=== PATIENT | male | born 1950 | race Caucasian/White ===

== ENCOUNTER 2021-02-21 07:54 | Outpatient (REF) | payer OTHER, SELFPAY ==
[2021-02-21 11:34] LABS: Appearance Urine CLEAR; Color Urine YELLOW; Glucose Urine UA NEG (NEG); Leukocyte Esterase Urine NEG (NEG); Nitrite Urine NEG (NEG); Specific Gravity - Urine 1.015 (1.005-1.025); Urine Blood NEG (NEG); Urine Ketones NEG (NEG); Urine Protein NEG (NEG-TRACE)
[2021-02-21 11:39] LABS: MANUAL DIFF FLAG NO
[2021-02-21 11:49] LABS: Basophils Absolute Auto 0.1 X10*3/uL (0.0-0.2); Basophils Percent Auto 0.7 % (0-2); Eosinophils Absolute Auto 0.3 X10*3/uL (0.0-0.4); Eosinophils Percent Auto 4.3 % (0-4); Hematocrit 44.1 % (42-52); Hemoglobin 14.9 g/dl (14.0-18.0); Imm Gran Abs Auto 0.02 X10*3/uL (0.00-0.03); Imm Gran Pct Auto 0.3 % (0.0-0.4); Lymphocytes Absolute Auto 1.7 X10*3/uL (1.2-4.9); Lymphocytes Percent Auto 24.8 % (20-40); Mean Corpuscular HGB Conc 33.8 g/dl (31.0-36.0); Mean Corpuscular Hemoglobin 29.8 pg (27.0-33.0); Mean Corpuscular Volume 88.2 fL (80-98); Monocytes Absolute Auto 0.5 X10*3/uL (0.1-1.2); Monocytes Percent Auto 7.4 % (2-11); Neutrophils Absolute Auto 4.4 X10*3/uL (2.0-8.3); Neutrophils Percent Auto 62.5 % (45-73); Platelet Count 181 X10*3/uL (160-400); Red Cell Distribution Width 12.4 % (11.0-16.0)
[2021-02-21 12:16] LABS: Alanine Aminotransferase 22 U/L (0-40); Albumin Level 4.5 g/dL (3.5-5.0); Alkaline Phosphatase 38 U/L (39-117); Anion Gap 13 (12-20); Aspartate Amino Transferase 18 U/L (5-37); Bilirubin Total 0.7 mg/dL (0.0-1.0); Blood Urea Nitrogen 18 mg/dL (9-16); Calcium 9.6 mg/dL (8.4-10.2); Carbon Dioxide 24 mmol/L (22-29); Chloride 103 mmol/L (96-108); Cholesterol 159 mg/dL; Estimated Glomerular Filt Rate > 60; Glucose Fasting 97 mg/dL (60-99); HDL Cholesterol 39 mg/dL; LDL Cholesterol Calculated 84 mg/dl; Potassium 4.7 mmol/L (3.3-5.1); Sodium 135 mmol/L (135-145); Total Protein 7.4 g/dL (6.5-8.0); Triglycerides 180 mg/dL
[2021-02-21 12:28] LABS: RBC Urine 0 /HPF (0); Squamous Epithelial Cell Urine TRACE /LPF; Urine Talc Crystals TRACE /LPF; WBC Urine 0 /HPF (0-4)
[2021-02-21 12:38] LABS: Thyroid Stimulating Hormone 1.16 uIU/mL (0.32-4.0); Vitamin D 25-OH Total 26.1 ng/mL (>30)
== END 2021-02-21 07:55 | disposition home or self-care (01) ==
LOC: HO.HMGCLDS 07:54
PROVIDERS: PCP Internal Medicine; Visit Provider Internal Medicine
DX: Z00.00 Encounter for general adult medical examination without abnormal findings (principal); I10 Essential (primary) hypertension; E78.00 Pure hypercholesterolemia, unspecified; M15.0 Primary generalized (osteo)arthritis; E66.09 Other obesity due to excess calories; Z68.35 Body mass index [BMI] 35.0-35.9, adult; Z12.5 Encounter for screening for malignant neoplasm of prostate
CPT/HCPCS: 36415; 80053; 80061; 81001; 82306; 84153; 84443; 85025

== ENCOUNTER 2022-03-13 07:16 | Outpatient (REF) | payer OTHER, SELFPAY ==
[2022-03-13 12:02] LABS: Appearance Urine Clear; Basophils Percent Auto 0.7 % (0-2); Color Urine Yellow; Eosinophils Absolute Auto 0.3 X10*3/uL (0.0-0.4); Eosinophils Percent Auto 6.1 % (0-4); Glucose Urine UA Negative (Negative); Hematocrit 44.2 % (42.0-52.0); Hemoglobin 14.7 g/dl (14.0-18.0); Imm Gran Abs Auto 0.01 X10*3/uL (0.00-0.03); Imm Gran Pct Auto 0.2 % (0.0-0.4); Leukocyte Esterase Urine Negative (Negative); Lymphocytes Absolute Auto 1.4 X10*3/uL (1.2-4.9); Lymphocytes Percent Auto 26.2 % (20-40); MANUAL DIFF FLAG NO; Mean Corpuscular HGB Conc 33.3 g/dl (31.0-36.0); Mean Corpuscular Hemoglobin 29.1 pg (27.0-33.0); Mean Corpuscular Volume 87.4 fL (80.0-98.0); Mean Platelet Volume 10.9 fL (9.4-12.4); Monocytes Absolute Auto 0.5 X10*3/uL (0.1-1.2); Monocytes Percent Auto 8.5 % (2-11); Neutrophils Absolute Auto 3.1 x10*3/uL (2.0-8.3); Neutrophils Percent Auto 58.3 % (45-73); Nitrite Urine Negative (Negative); Platelet Count 179 X10*3/uL (160-400); Red Blood Count 5.06 X10*6/uL (4.60-5.80); Urine Blood Negative (Negative); Urine Ketones Negative (Negative); Urine Protein Negative (Neg-Trace); White Blood Count 5.4 X10*3/uL (4.8-10.8)
[2022-03-13 12:06] LABS: Bacteria Urine None Seen (None Seen); Hyaline Casts Urine 0-2 /LPF (0-2); RBC Urine 0-2 /HPF (0-2); Squamous Epithelial Cell Urine 0-2 /HPF (0-2); WBC Urine 0-5 /HPF (0-5)
[2022-03-13 12:31] LABS: Alanine Aminotransferase 18 U/L (0-40); Albumin Level 4.4 g/dL (3.5-5.0); Alkaline Phosphatase 41 U/L (39-117); Anion Gap 16 (12-20); Aspartate Amino Transferase 17 U/L (5-37); Bilirubin Total 0.3 mg/dL (0.0-1.0); Blood Urea Nitrogen 26 mg/dL (9-16); Calcium 9.6 mg/dL (8.4-10.2); Carbon Dioxide 23 mmol/L (22-29); Chloride 102 mmol/L (96-108); Cholesterol 162 mg/dL; Estimated Glomerular Filt Rate > 60; Glucose Fasting 110 mg/dL (60-99); HDL Cholesterol 41 mg/dL; LDL Cholesterol Calculated 89 mg/dl; Potassium 4.9 mmol/L (3.3-5.1); Sodium 136 mmol/L (135-145); Total Protein 7.3 g/dL (6.5-8.0); Triglycerides 161 mg/dL
[2022-03-13 12:40] LABS: PSA,Total (Free>4and<10) 1.99 ng/mL (0.00-4.00); Thyroid Stimulating Hormone 1.23 uIU/mL (0.32-4.0); Vitamin D 25-OH Total 22.1 ng/mL (>30)
== END 2022-03-13 07:17 | disposition home or self-care (01) ==
LOC: HO.HMGCLDS 07:16
PROVIDERS: PCP Internal Medicine; Visit Provider Internal Medicine
DX: Z00.00 Encounter for general adult medical examination without abnormal findings (principal); Z12.5 Encounter for screening for malignant neoplasm of prostate; I10 Essential (primary) hypertension; E78.00 Pure hypercholesterolemia, unspecified; E66.09 Other obesity due to excess calories; N40.1 Benign prostatic hyperplasia with lower urinary tract symptoms; R39.14 Feeling of incomplete bladder emptying
CPT/HCPCS: 36415; 80053; 80061; 81001; 82306; 84153; 84443; 85025

== ENCOUNTER 2023-02-12 06:10 | Outpatient (REF) | payer OTHER, SELFPAY ==
[2023-02-12 11:21] LABS: MANUAL DIFF FLAG NO
[2023-02-12 11:41] LABS: Basophils Absolute Auto 0.1 X10*3/uL (0.0-0.2); Basophils Percent Auto 0.9 % (0-2); Eosinophils Absolute Auto 0.3 X10*3/uL (0.0-0.4); Eosinophils Percent Auto 5.8 % (0-4); Hematocrit 45.1 % (42.0-52.0); Hemoglobin 14.8 g/dl (14.0-18.0); Imm Gran Abs Auto 0.01 X10*3/uL (0.00-0.03); Imm Gran Pct Auto 0.2 % (0.0-0.4); Lymphocytes Absolute Auto 1.5 X10*3/uL (1.2-4.9); Lymphocytes Percent Auto 27.1 % (20-40); Mean Corpuscular HGB Conc 32.8 g/dl (31.0-36.0); Mean Corpuscular Hemoglobin 29.7 pg (27.0-33.0); Mean Corpuscular Volume 90.4 fL (80.0-98.0); Monocytes Absolute Auto 0.4 X10*3/uL (0.1-1.2); Monocytes Percent Auto 6.7 % (2-11); Neutrophils Absolute Auto 3.2 x10*3/uL (2.0-8.3); Neutrophils Percent Auto 59.3 % (45-73); Platelet Count 153 X10*3/uL (160-400); Red Blood Count 4.99 X10*6/uL (4.60-5.80); Red Cell Distribution Width 12.7 % (11.0-16.0); White Blood Count 5.4 X10*3/uL (4.8-10.8)
[2023-02-12 12:09] LABS: Alanine Aminotransferase 22 U/L (0-40); Albumin Level 4.3 g/dL (3.5-5.0); Alkaline Phosphatase 39 U/L (39-117); Anion Gap 13 (12-20); Aspartate Amino Transferase 19 U/L (5-37); Bilirubin Total 0.8 mg/dL (0.0-1.0); Blood Urea Nitrogen 22 mg/dL (9-16); Calcium 9.8 mg/dL (8.4-10.2); Carbon Dioxide 25 mmol/L (22-29); Chloride 105 mmol/L (96-108); Cholesterol 149 mg/dL (<200); Estimated Glomerular Filt Rate > 60; Glucose Fasting 113 mg/dL (60-99); HDL Cholesterol 40 mg/dL (>40); LDL Cholesterol Calculated 80 mg/dL (<100); Potassium 5.2 mmol/L (3.3-5.1); Sodium 138 mmol/L (135-145); Total Protein 7.3 g/dL (6.5-8.0); Triglycerides 145 mg/dL (<150)
[2023-02-12 12:13] LABS: PSA,Total (Free>4and<10) 2.51 ng/mL (0.00-4.00)
[2023-02-12 12:16] LABS: Thyroid Stimulating Hormone 1.11 uIU/mL (0.32-4.0)
== END 2023-02-12 06:11 | disposition home or self-care (01) ==
LOC: HO.CHCLDS 06:10
PROVIDERS: Visit Provider Internal Medicine
DX: Z00.00 Encounter for general adult medical examination without abnormal findings (principal); Z12.5 Encounter for screening for malignant neoplasm of prostate; I10 Essential (primary) hypertension; E78.00 Pure hypercholesterolemia, unspecified; N40.1 Benign prostatic hyperplasia with lower urinary tract symptoms; E55.9 Vitamin D deficiency, unspecified
CPT/HCPCS: 36415; 80053; 80061; 82306; 84153; 84443; 85025

== ENCOUNTER 2023-08-12 06:04 | Outpatient (REF) | payer OTHER, SELFPAY ==
[2023-08-12 12:46] LABS: MANUAL DIFF FLAG NO
[2023-08-12 12:51] LABS: Basophils Absolute Auto 0.1 X10*3/uL (0.0-0.2); Basophils Percent Auto 1.4 % (0-2); Eosinophils Absolute Auto 0.4 X10*3/uL (0.0-0.4); Eosinophils Percent Auto 6.5 % (0-4); Hemoglobin 15.4 g/dl (14.0-18.0); Imm Gran Abs Auto 0.02 X10*3/uL (0.00-0.03); Imm Gran Pct Auto 0.4 % (0.0-0.4); Lymphocytes Absolute Auto 1.6 X10*3/uL (1.2-4.9); Lymphocytes Percent Auto 29.1 % (20-40); Mean Corpuscular HGB Conc 33.5 g/dl (31.0-36.0); Mean Corpuscular Hemoglobin 29.3 pg (27.0-33.0); Mean Corpuscular Volume 87.6 fL (80.0-98.0); Mean Platelet Volume 10.5 fL (9.4-12.4); Monocytes Absolute Auto 0.4 X10*3/uL (0.1-1.2); Monocytes Percent Auto 7.2 % (2-11); Neutrophils Absolute Auto 3.1 x10*3/uL (2.0-8.3); Neutrophils Percent Auto 55.4 % (45-73); Platelet Count 155 X10*3/uL (160-400); Red Blood Count 5.25 X10*6/uL (4.60-5.80); Red Cell Distribution Width 12.6 % (11.0-16.0); White Blood Count 5.6 X10*3/uL (4.8-10.8)
[2023-08-12 13:22] LABS: Alanine Aminotransferase 22 U/L (0-40); Albumin Level 4.2 g/dL (3.5-5.0); Alkaline Phosphatase 37 U/L (39-117); Anion Gap 11 (12-20); Aspartate Amino Transferase 19 U/L (5-37); Bilirubin Total 0.5 mg/dL (0.0-1.0); Blood Urea Nitrogen 28 mg/dL (9-16); Calcium 9.6 mg/dL (8.4-10.2); Carbon Dioxide 24 mmol/L (22-29); Chloride 106 mmol/L (96-108); Estimated Glomerular Filt Rate > 60; Glucose Fasting 107 mg/dL (60-99); Potassium 4.8 mmol/L (3.3-5.1); Sodium 136 mmol/L (135-145); Total Protein 7.3 g/dL (6.5-8.0)
== END 2023-08-12 06:05 | disposition home or self-care (01) ==
LOC: HO.HMGCLDS 06:04
PROVIDERS: PCP Internal Medicine; Visit Provider Internal Medicine
DX: Z00.00 Encounter for general adult medical examination without abnormal findings (principal); I10 Essential (primary) hypertension; E78.00 Pure hypercholesterolemia, unspecified; N40.1 Benign prostatic hyperplasia with lower urinary tract symptoms; E55.9 Vitamin D deficiency, unspecified
CPT/HCPCS: 36415; 80053; 85025

== ENCOUNTER 2023-09-30 06:22 | Day surgery (SDC) | payer OTHER, SELFPAY ==
[2023-09-26 13:53] VITALS: BMI 31.7
--- NOTE | 2023-09-26 14:50 | HO.ANESPROP2 ---
Documented by User: Ericka Alfonso NP 09/26/23 14:50 HPI - Anesthesia Eval Consult details Narrative: 73yo M for Colonoscopy [facility] Past Medical History Medical History BPH (benign prostatic hyperplasia) Depression Osteoarthritis Hyperlipidemia HTN (hypertension) Tubular adenoma Colon polyps Surgical History Surgical History Hx of arthroscopy History of bilateral knee replacement H/O colonoscopy Social History Social History Patient Tobacco Use Status: Former Tobacco user Substance Use Frequency: Daily Are you DNR?: No Advance Directives: No Advance Directives Information Provided: Yes Nutrition Risks: No Nutritional Risk Meds Allergies Allergy/AdvReac Type Severity Reaction Status Date / Time Penicillins [PENICILLINS] Allergy Severe DIFFICULTY Verified 09/30/23 06:45 BREATHING Tetracyclines [TETRACYCLINES] Allergy Intermediate RASH, Verified 09/30/23 06:45 HIVES, DIFFICULTY BREATHING penicillin V Allergy Unknown Unknown Verified 09/30/23 06:45 tetracycline Allergy Unknown Unknown Verified 09/30/23 06:45 Sulfa (Sulfonamide Allergy Unknown Verified 09/30/23 06:45 Antibiotics) Home Medications ?Medication ?Instructions ?Recorded ?Confirmed ?Last Taken ?Type ibuprofen-diphenhydramine citrate 1 cap PO BEDTIME 09/26/23 09/26/23 Unknown History 200 mg-38 mg tablet (Advil PM) lisinopril 40 mg tablet 40 mg PO DAILY 09/26/23 09/26/23 09/30/23 History simvastatin 20 mg tablet 20 mg PO BEDTIME 09/26/23 09/26/23 Unknown History tamsulosin 0.4 mg capsule 0.4 mg PO DAILY 09/26/23 09/26/23 Unknown History Exam Height,Weight and Vital Signs: Height 5 ft 9.5 in Weight 98.883 kg Pertinent Lab Results Pertinent Lab Results: Laboratory Tests 08/12/23 06:16 WBC 5.6 Hgb 15.4 Hct 46.0 Plt Count 155 L Sodium 136 Potassium 4.8 Chloride 106 Carbon Dioxide 24 BUN 28 H Creatinine 1.04 Assessment and Plan Assessment Anesthesia Assessment: Chart Reviewed Documented by User: Jo-Ann Vasquez MD 09/30/23 07:46 [facility] Past Medical History Medical History BPH (benign prostatic hyperplasia) Depression Osteoarthritis Hyperlipidemia HTN (hypertension) Tubular adenoma Colon polyps Surgical History Surgical History Hx of arthroscopy History of bilateral knee replacement H/O colonoscopy History of Problems with Anesthesia: No Social History Social History Patient Tobacco Use Status: Former Tobacco user Substance Use Frequency: Daily Are you DNR?: No Advance Directives: No Advance Directives Information Provided: Yes Nutrition Risks: No Nutritional Risk Meds Allergies Allergy/AdvReac Type Severity Reaction Status Date / Time Penicillins [PENICILLINS] Allergy Severe DIFFICULTY Verified 09/30/23 06:45 BREATHING Tetracyclines [TETRACYCLINES] Allergy Intermediate RASH, Verified 09/30/23 06:45 HIVES, DIFFICULTY BREATHING penicillin V Allergy Unknown Unknown Verified 09/30/23 06:45 tetracycline Allergy Unknown Unknown Verified 09/30/23 06:45 Sulfa (Sulfonamide Allergy Unknown Verified 09/30/23 06:45 Antibiotics) Home Medications ?Medication ?Instructions ?Recorded ?Confirmed ?Last Taken ?Type ibuprofen-diphenhydramine citrate 1 cap PO BEDTIME 09/26/23 09/26/23 Unknown History 200 mg-38 mg tablet (Advil PM) lisinopril 40 mg tablet 40 mg PO DAILY 09/26/23 09/26/23 09/30/23 History simvastatin 20 mg tablet 20 mg PO BEDTIME 09/26/23 09/26/23 Unknown History tamsulosin 0.4 mg capsule 0.4 mg PO DAILY 09/26/23 09/26/23 Unknown History Exam Airway Mallampati Class: III TM Dist: >3cm Neck ROM: Full Loose/Missing/Broken Teeth: No Heart: RRR Lungs: CTA Assessment and Plan Assessment Anesthesia Assessment: Anesthesia Plan Discussed Final Anesthetic Review History of Problems with Anesthesia: No NPO: Yes ASA Class: II Final Preanesthetic Review: Meds/Allgs Chart Reviewed, Consent Obtained/Reviewed and Anes Risks/Benef Reviewed Patient Risk: Low Procedure Risk: Low Anesthetic Plan Anesthetic Plan: MAC: Disposition: Standard PACU
--- OUTSIDE RECORDS SUMMARY | 2023-09-30 06:25 | XMS_ITS | Patient Health Record ---
Author Organization José Luis Rizvi DO, FACP Address [address], [place] [id number] Care Team Providers Care Crop Research Scientist Name Role Phone José Luis Rizvi Primary Care Provider [phone] ALLERGIES Allergen (clinical drug ingredient) Drug/Non Drug Allergy documented on EMR Reaction Allergy Type Onset Date Status Penicillin respiratory and skin problems Drug Allergy Active tetracycline Tetracycline HCl respiratory and skin problems Drug Allergy Active RESULTS Component Value Reference Range Notes Complete Blood Count Auto Di ff Reviewed date:02/12/2023 12:13:21 PM Interpretation:Abnormal Performing Lab:[facility], [address] [place] [phone] Notes/Report: White Blood Count 5.4 4.8-10.8 X10*3/uL Red Blood Count 4.99 4.60-5.80 X10*6/uL Hemoglobin 14.8 14.0-18.0 g/dl Hematocrit 45.1 42.0-52.0 % Mean Corpuscular Volume 90.4 80.0-98.0 fL Mean Corpuscular Hemoglobin 29.7 27.0-33.0 pg Mean Corpuscular HGB Conc 32.8 31.0-36.0 g/dl Red Cell Distribution Width 12.7 11.0-16.0 % Platelet Count 153 160-400 X10*3/uL Mean Platelet Volume 11.0 9.4-12.4 fL Neutrophils Percent Auto 59.3 45-73 % Imm Gran Pct Auto 0.2 0.0-0.4 % Lymphocytes Percent Auto 27.1 20-40 % Monocytes Percent Auto 6.7 2-11 % Eosinophils Percent Auto 5.8 0-4 % Basophils Percent Auto 0.9 0-2 % NRBC Pct Auto 0.0 0.0-0.2 /100WBC Neutrophils Absolute Auto 3.2 2.0-8.3 x10*3/u L Imm Gran Abs Auto 0.01 0.00-0.03 X10*3/uL Lymphocytes Absolute Auto 1.5 1.2-4.9 X10*3/u L Monocytes Absolute Auto 0.4 0.1-1.2 X10*3/uL Eosinophils Absolute Auto 0.3 0.0-0.4 X10*3/u L Basophils Absolute Auto 0.1 0.0-0.2 X10*3/uL NRBC Abs Auto 0.000 0.0-0.012 X10*3/uL Comprehensive [place]. Panel Fa st Reviewed date:02/12/2023 12:24:59 PM Interpretation:Abnormal Performing Lab:[address] [phone] Notes/Report: Sodium 138 135-145 mmol/L Potassium 5.2 3.3-5.1 mmol/L Chloride 105 96-108 mmol/L Carbon Dioxide 25 22-29 mmol/L Anion Gap 13 12-20 Blood Urea Nitrogen 22 9-16 mg/dL Creatinine 1.07 0.5-1.4 mg/dL Estimated Glomerular Filt Rate > 60 NOTE: For -[place] individuals, multiply the result by 1.210. Chronic Kidney Disease: Estimated GFR < 60 mL/min/1.73m2 Severe Kidney Disease: Estimated GFR < 15 mL/min/1.73m2 Glucose Fasting 113 60-99 mg/dL A fasting glucose from 100-125 mg/dl is considered impaired (pre-diabetes). Calcium 9.8 8.4-10.2 mg/dL Bilirubin Total 0.8 0.0-1.0 mg/dL Aspartate Amino Transferase 19 5-37 U/L Alanine Aminotransferase 22 0-40 U/L Total Protein 7.3 6.5-8.0 g/dL Albumin Level 4.3 3.5-5.0 g/dL Alkaline Phosphatase 39 39-117 U/L Lipid Panel Reviewed date:02/12/2023 12:24:59 PM Interpretation:Normal Performing Lab:[facility], [address] [place] [phone] Notes/Report: Triglycerides 145 <150 mg/dL Desirable Triglyceride: less than 150 mg/dL Borderline High Triglyceride 150-199 mg/dL High Triglyceride: 200-499 mg/dL Very High Triglyceride: greater than or equal to 5OO mg/dL Cholesterol 149 <200 mg/dL Desirable Cholesterol: less than 200 mg/dL Borderline High Cholesterol: 200-239 mg/dL High Cholesterol: greater than 239 mg/dL LDL Cholesterol Calculated 80 <100 mg/dL Desirable LDL: less than 100 mg/dL Near Optimal/Above Optimal LDL: 110-129 mg/dL Borderline High LDL: 130-159 mg/dL High LDL: 160-189 mg/dL Very High LDL: greater than or equal to 190 mg/dL HDL Cholesterol 40 >40 mg/dL Desirable HDL: greater than 40 mg/dL Note: This HDL assay may give artificially low results in patients with liver disease. PSA,Total (Free>4and<10) Reviewed date:02/12/2023 12:24:59 PM Interpretation:Normal Performing Lab:[address] [phone] Notes/Report: PSA,Total (Free>4and<10) 2.51 0.00-4.00 ng/mL A Free PSA was not performed: The percentage of Free PSA can be used to enhance the differentiation of prostate cancer from benign prostatic disease in subjects whose PSA levels are between 4.0 and 10.0 ng/mL. For subjects whose PSA levels are below 4.0 or above 10.0 ng/mL, the risk of prostate cancer is determined on the basis of the PSA alone. Therefore the % Free PSA is recommended only for those subjects whose PSA levels are between 4.0 and 10.0 ng/mL. PSA methodology: [employer] i Chemiluminescent Microparticle Immunoassay (CMIA) Vitamin D 25-OH Total Reviewed date:02/12/2023 12:24:59 PM Interpretation:Normal Performing Lab:[address] [phone] Notes/Report: Vitamin D 25-OH Total 58.0 >30 ng/mL Health Based Reference Values* < 20 ng/mL Deficient 20-30 ng/mL Insufficient > 30 ng/mL Sufficient *Selene SU. N Engl J Med. 2007;357:266-280 Care must be taken in interpreting Vitamin D results from different laboratories and methodologies. Published data demonstrated that results from patients undergoing hemodialysis may show a negative bias when tested with various automated 25-OH vitamin D assays when compared to LC-MS/MS. When testing samples from patients whose predominant form of Vitamin D is Vitamin D2, such as patients receiving Vitamin D2 supplementation, results that are subtherapeutic should be confirmed with another method such as LC-MS/MS. Thyroid Stimulating Hormone Reviewed date:02/12/2023 12:26:23 PM Interpretation:Normal Performing Lab:[facility], [address] [place] [phone] Notes/Report: Thyroid Stimulating Hormone 1.11 0.32-4.0 uIU/ mL TSH 3rd Generation ([employer]) Complete Blood Count Auto Di ff Reviewed date:08/12/2023 01:03:46 PM Interpretation:Abnormal Performing Lab:[facility], [address] [place] [phone] Notes/Report: White Blood Count 5.6 4.8-10.8 X10*3/uL Red Blood Count 5.25 4.60-5.80 X10*6/uL Hemoglobin 15.4 14.0-18.0 g/dl Hematocrit 46.0 42.0-52.0 % Mean Corpuscular Volume 87.6 80.0-98.0 fL Mean Corpuscular Hemoglobin 29.3 27.0-33.0 pg Mean Corpuscular HGB Conc 33.5 31.0-36.0 g/dl Red Cell Distribution Width 12.6 11.0-16.0 % Platelet Count 155 160-400 X10*3/uL Mean Platelet Volume 10.5 9.4-12.4 fL Neutrophils Percent Auto 55.4 45-73 % Imm Gran Pct Auto 0.4 0.0-0.4 % Lymphocytes Percent Auto 29.1 20-40 % Monocytes Percent Auto 7.2 2-11 % Eosinophils Percent Auto 6.5 0-4 % Basophils Percent Auto 1.4 0-2 % NRBC Pct Auto 0.0 0.0-0.2 /100WBC Neutrophils Absolute Auto 3.1 2.0-8.3 x10*3/u L Imm Gran Abs Auto 0.02 0.00-0.03 X10*3/uL Lymphocytes Absolute Auto 1.6 1.2-4.9 X10*3/u L Monocytes Absolute Auto 0.4 0.1-1.2 X10*3/uL Eosinophils Absolute Auto 0.4 0.0-0.4 X10*3/u L Basophils Absolute Auto 0.1 0.0-0.2 X10*3/uL NRBC Abs Auto 0.000 0.0-0.012 X10*3/uL Comprehensive [place]. Panel Fa st Reviewed date:08/12/2023 01:44:38 PM Interpretation:Abnormal Performing Lab:[facility], [address] [place] [phone] Notes/Report: Sodium 136 135-145 mmol/L Potassium 4.8 3.3-5.1 mmol/L Chloride 106 96-108 mmol/L Carbon Dioxide 24 22-29 mmol/L Anion Gap 11 12-20 Blood Urea Nitrogen 28 9-16 mg/dL Creatinine 1.04 0.5-1.4 mg/dL Estimated Glomerular Filt Rate > 60 NOTE: For -[place]igerian individuals, multiply the result by 1.210. Chronic Kidney Disease: Estimated GFR < 60 mL/min/1.73m2 Severe Kidney Disease: Estimated GFR < 15 mL/min/1.73m2 Glucose Fasting 107 60-99 mg/dL A fasting glucose from 100-125 mg/dl is considered impaired (pre-diabetes). Calcium 9.6 8.4-10.2 mg/dL Bilirubin Total 0.5 0.0-1.0 mg/dL Aspartate Amino Transferase 19 5-37 U/L Alanine Aminotransferase 22 0-40 U/L Total Protein 7.3 6.5-8.0 g/dL Albumin Level 4.2 3.5-5.0 g/dL Alkaline Phosphatase 37 39-117 U/L REASON FOR REFERRAL Reason F/U colonoscopy Diagnosis 1 Encounter for genera l adult medical examination without abnormal findings (Z00.00) Referral Organization José Luis Mac, FACCristobal Referring Provider First Name José Luis Referring Provider Last Name Dmitri Referring Provider Speciality Internal M edicine Referred Provider Andrzej Malik Referred Provider Specialty Gastroentero logy Referral Priority Routine Referral Appointment Date 07/14/2023 MEDICATIONS Medication SIG (Take, Route, Frequency, Duration) Notes Start Date End Date Status Simvastatin 20 MG 1 tablet in the even ing Orally Once a day for 90 days Active Simvastatin 20 MG 1 tablet in the even ing Orally Once a day 08/20/2023 Active Vitamin D (Cholecalciferol) 25 MCG (1000 UT) 1 capsule Orally Once a day Active Tamsulosin HCl 0.4 MG 1 capsule Orally O nce a day Active Lisinopril 40 MG 1 tablet Orally Once a day Active IMMUNIZATIONS Vaccine Route Administration Date Status Comme nts Influenza IM Intramuscular 01/27/2014 Administered Influenza Quad IM Intramuscular 03/07/2015 Administered Pneumococcal - PPSV23 IM Intramuscular 09/18/2015 Administ ered Influenza High Dose IM Intramuscular 01/19/2021 Administer ed Influnza High Dose Quad Unknown 02/12/2022 Administered Shingrix Unknown 05/08/2020 Administered COVID-19 Moderna Vaccine Unknown 08/03/2020 Administere d COVID-19 Moderna Vaccine Unknown 03/05/2021 Administere d Shingrix Unknown 03/03/2020 Administered Influenza High Dose Unknown 03/18/2019 Administered COVID-19 Moderna Vaccine Unknown 08/24/2021 Administere d COVID-19 Moderna Vaccine Unknown 07/06/2020 Administere d Influenza Quad Unknown 02/18/2020 Administered COVID-19 Moderna Bivalent Unknown 02/12/2022 Administer ed SOCIAL HISTORY Tobacco Use: Social History Observation Description Date Details (start date - stop date) Former Smoker NA - NA Sex Assigned At : Social History Observation Description Sex Assigned At Male Tobacco Use/Smoking Question Answer Notes Patient is a former smoker How long has it been since y ou last smoked? > 10 years Additional Findings: Tobacco Non-User Fo rmer smoker, currently using no form of tobacco Alcohol Screen Question Answer Notes Did you have a drink containing alcohol in the p ast year? No Points 0 Interpretation Negative PROBLEMS Problem Type ICD Code Onset Dates Problem Status W/U Status Risk SNOMED Code Notes Problem Vitamin D deficiency (E55.9) Active confirmed 15808817 Problem Other obesity due to excess calories (E66.09) Active confirmed 342585479 Problem Essential hypertensi on (I10) Active confirmed 52740571 Problem Primary osteoarthrit is involving multiple joints (M15.0) Active confirmed 311874579 Problem Status post total ri ght knee replacement (Z96.651) Active confirmed 0839979283959 Problem Benign prostatic hyperplasia with lower urinary tract symptoms (N40.1) Active confirmed 963937818 Problem Hypercholesterolemia (E78.00) Active confirmed 19175265 Problem Body mass index [BMI ] 35.0-35.9, adult (Z68.35) Active confirmed 448563049 Encounters Encounter Location Date Provider Diagnosis José Luis Rizvi DO, [address] [phone] 02/18/2023 José Luis Rizvi Encounter for leonardo servin adult medical examination without abnormal findings Z00.00 ; Essential hypertension I10 ; Hypercholesterolemia E78.00 ; Benign prostatic hyperplasia with lower urinary tract symptoms N40.1 and Vitamin D deficiency E55.9 José Luis Rizvi DO, [address] [phone] 08/20/2023 José Luis Rizvi Essential hypertensi on I10 ; Hypercholesterolemia E78.00 ; Other obesity due to excess calories E66.09 ; Benign prostatic hyperplasia with lower urinary tract symptoms N40.1 and Vitamin D deficiency E55.9 José Luis Rizvi , [address] [phone] 02/04/2023 José Luis Rizvi Encounter for leonardo servin adult medical examination without abnormal findings Z00.00 ; Essential hypertension I10 ; Hypercholesterolemia E78.00 ; Benign prostatic hyperplasia with lower urinary tract symptoms N40.1 and Vitamin D deficiency E55.9 ASSESSMENTS Encounter Date Diagnosis Assessment Notes Treatment Notes Treatment Clinical Notes 02/18/2023 Encounter for leonardo servin adult medical examination without abnormal findings (ICD-10 - Z00.00) Exercise, diet, carbohydrate restriction, portion control, weight loss. Goal 15 pound weight loss 02/18/2023 Essential hypertensi on (ICD-10 - I10) 08/20/2023 Essential hypertensi on (ICD-10 - I10) 08/20/2023 Hypercholesterolemia (ICD-10 - E78.00) 02/04/2023 Encounter for leonardo l adult medical examination without abnormal findings (ICD-10 - Z00.00) 02/04/2023 Essential hypertensi on (ICD-10 - I10) 02/18/2023 Hypercholesterolemia (ICD-10 - E78.00) 08/20/2023 Other obesity due to excess calories (ICD-10 - E66.09) Diet, exercise, weight loss. Needs to decrease his BMI. Goal weight loss of 15 pounds 02/04/2023 Hypercholesterolemia (ICD-10 - E78.00) 02/18/2023 Benign prostatic hyperplasia with lower urinary tract symptoms (ICD-10 - N40.1) 08/20/2023 Benign prostatic hyperplasia with lower urinary tract symptoms (ICD-10 - N40.1) 02/04/2023 Benign prostatic hyperplasia with lower urinary tract symptoms (ICD-10 - N40.1) 02/18/2023 Vitamin D deficiency (ICD-10 - E55.9) 08/20/2023 Vitamin D deficiency (ICD-10 - E55.9) 02/04/2023 Vitamin D deficiency (ICD-10 - E55.9) PLAN OF TREATMENT Pending Test Test Name Order Date CBC w DIFF 08/20/2023 LIPOPROTEIN FRACTIONATION (LIPID PANEL) 08/20/2023 PROFILE, FASTING 08/20/2023 TSH (THYROID STIMULATING HORMONE) 2023 VITAMIN D 25-OH TOTAL 08/20/2023 Urinalysis and Microscopic 08/20/2023 PSA,Total (Free>4and<10) 08/20/2023 Microalbumin, Random 08/20/2023 Hemoglobin A1c 08/20/2023 Next Appt Details Provider Name:José Luis Kaylie fuller, 02/24/2024 01:00:00 PM, [address] [place] [address], [phone], Insurance Providers Payer Name Payer Address Payer Phone Subscriber Number Group Number Insured Name Patient Relationship to Insured Coverage Start Date Coverage End Date [employer] [address] [place], [place] [id number] Dejon Shelton Self - patient is the insured MEDICAL (GENERAL) HISTORY Medical History History ICD Code hypertension hypercholesterolemia perineal abcess osteoarthritis, knees prostatitis folic acid deficiency allergies depression erectile dysfunction alcoholism, sober since 04/10/1995 Benign prostatic hyperplasia with lower urinary tract symptoms N40.1 Surgical History Surgery Date(Month/Year) tonsillectomy and adenoidectomy right knee replacement 09/2015 left knee replacement 12/2015
--- OUTSIDE RECORDS SUMMARY | 2023-09-30 06:25 | XMS_ITS | Patient Health Record ---
Author Organization [facility] Address [address] [place] [address] Care Team Providers Care Systems Software Designer Name Role Phone José Luis Lynn DO Primary Care Provider Unavail able Andrzej Riley Jr Unavailable ALLERGIES Allergen (clinical drug ingredient) Drug/Non Drug Allergy documented on EMR Reaction Allergy Type Onset Date Status Sulfa Unknown Drug Allergy Active Penicillin Unknown Drug Allergy Active tetracycline Tetracycline HCl Unknown Drug Allergy Active REASON FOR REFERRAL Referring Provider First Name José Luis Referring Provider Last Name Dmitri Referring Provider Speciality Internal M edicine Referred Organization [facility] Referred Provider Andrzej Riley Jr Referred Address [address] [facility],[address],[place], [place],[address], Referred Provider Specialty Gastroentero logy General Notes Iris Levi 024 08:53:02 AM EST > call dr lynn's office at [phone] to see if a [facility] referral is needed for the patient's appt with Dr. Riley on 07-14-2023, Iris Levi 07/01/2023 10:51:04 AM EST > REQUESTED REFERRAL FROM DR LYNN'S OFFICE FOR VISIT WITH DR RILEY ON 07-14-2023, Iris Levi 07/02/2023 09:30:34 AM EST > no referral required per dr lynn's office Referral Priority Routine MEDICATIONS Medication SIG (Take, Route, Frequency, Duration) Notes Start Date End Date Status Tamsulosin HCl 0.4 MG as directed Orally Active Lisinopril Active Simvastatin Active Advil PM Active MiraLax (colon prep) 17 GM/SCOOP mixed with Gatorade or Crystal Light Orally begin at 5:00 p.m. the day before the procedure for 1 day 07/14/2023 Active IMMUNIZATIONS Vaccine Route Administration Date Status Comme nts Influenza Unknown 01/28/2023 Administered SOCIAL HISTORY Tobacco Use: Social History Observation Description Date Details (start date - stop date) Former Smoker NA - NA Sex Assigned At : Social History Observation Description Sex Assigned At Unknown Tobacco Use/Smoking Question Answer Notes Patient is a former smoker How long has it been since you last smoked? 5-10 years PROBLEMS Problem Type ICD Code Onset Dates Problem Status W/U Status Risk SNOMED Code Notes Problem Colon cancer screening (Z12.11) Active confirmed 899153638 Problem Gastroesophageal reflux disease without esophagitis (K21.9) Active confirmed 601390274 Problem Encounter for long-term (current) use of NSAIDs (Z79.1) Active confirmed 388303361 Problem Intestinal gas excretion (R14.3) Active confirmed 670937977 Problem Change in bowel movement (R19.8) Active confirmed 93149523 VITAL SIGNS Temperature 97.5 degrees Fahrenheit 07/14/2023 Blood pressure diastolic 00 mm Hg 07/14/2023 Height 69.50 in 07/14/2023 Blood pressure systolic 000 mm Hg 07/14/2023 Weight 218 lb 2 oz lbs 07/14/2023 BMI 31.75 kg/m2 07/14/2023 Encounters Encounter Location Date Provider Diagnosis [facility] [address] [place] [phone] 09/30/2023 Andrzej Riley Jr [facility] [address] [facility] [address] [place] [phone] 07/14/2023 Andrzej Riley Jr Colon cancer screening Z12.11 ; Change in bowel movement R19.8 ; Intestinal gas excretion R14.3 and Encounter for long-term (current) use of NSAIDs Z79.1 ASSESSMENTS Encounter Date Diagnosis Assessment Notes Treatment Notes Treatment Clinical Notes 07/14/2023 Colon cancer screening (ICD-10 - Z12.11) Colonoscopy material was printed 07/14/2023 Change in bowel movement (ICD-10 - R19.8) 07/14/2023 Intestinal gas excretion (ICD-10 - R14.3) 07/14/2023 Encounter for long-term (current) use of NSAIDs (ICD-10 - Z79.1) PLAN OF TREATMENT Future Test Test Name Order Date COLONOSCOPY 10/30/2011 COLONOSCOPY 06/11/2017 COLONOSCOPY 07/14/2023 Next Appt Details Provider Name:Andrzej sena Jr, 09/30/2023 07:30:00 AM, [address] [place] [address] , [place], [place], [phone], Insurance Providers Payer Name Payer Address Payer Phone Subscriber Number Group Number Insured Name Patient Relationship to Insured Coverage Start Date Coverage End Date [employer] [address] [place] [phone] [id number] ISABELLE VIDES Self - patient is the insured MEDICAL (GENERAL) HISTORY Medical History History ICD Code Colon polyps, colonoscopy 09/26, tubular adenomas x2, five-year followup Hypertension Hyperlipidemia Osteoarthritis BPH/prostatitis Depression Surgical History Surgery Date(Month/Year) arthroscopy left knee replacement 2015 right knee replacement 2015
[2023-09-30 06:45] VITALS: BMI 30.9
[2023-09-30] MEDS: Lactated Ringers 1,000 ML 100 ML IVCONT (06:52)
[2023-09-30 06:57] VITALS: BP 126/88; PULSE 95; RESP 18; TEMP 36.7; O2SAT 96
--- NOTE | 2023-09-30 07:29 | MHC.SHP ---
Pre-Procedural Eval Section A - 24 Hr Update-Section A only Date of Service: 09/30/23 Section B - Complete if H&P > 30 days Chief Complaint: Encounter for screening for malignant neoplasm of Details of Present Illness: see H&P no changes Relevant Family History (Specify if Yes): No Relevant Social History: None Present Medications: see Short Stay Collaborative assessment Medical History: No relevant PMH History of Previous Operations: No relevant previous surgery Allergies: Allergies Allergy/AdvReac Type Severity Reaction Status Date / Time Penicillins [PENICILLINS] Allergy Severe DIFFICULTY Verified 09/30/23 06:45 BREATHING Tetracyclines [TETRACYCLINES] Allergy Intermediate RASH, Verified 09/30/23 06:45 HIVES, DIFFICULTY BREATHING penicillin V Allergy Unknown Unknown Verified 09/30/23 06:45 tetracycline Allergy Unknown Unknown Verified 09/30/23 06:45 Sulfa (Sulfonamide Allergy Unknown Verified 09/30/23 06:45 Antibiotics) Review of Systems Sugical H&P ROS: Negative: Constitution, Cardiovascular, Respiratory, Neurological, Psychiatric, Hem-Onc, Allergic/Immunologic, Gastrointestinal, Genitourinary, Musculoskeletal, Integumentary, Endocrine and Eyes/Ears/Nose/Throat Exam Surgical H&P Exam: Normal: HEENT, Normal: Heart, Normal: Lungs, Normal: Extremities, Normal: Abdomen, Normal: Skin and Normal: Neurological Plan Diagnosis/Plan: Unchanged I have reviewed the history and physical and performed a pertinent physical examination on my patient. No changes have occurred unless specified. Time Spent With Patient Time: Total time managing care of this patient today ____ minutes.
[2023-09-30 08:03] VITALS: BP 84/51; PULSE 85; RESP 18; TEMP 36.1; O2SAT 98
[2023-09-30 08:18] VITALS: BP 115/78; PULSE 74; RESP 16; TEMP 36.1; O2SAT 97
--- NOTE | 2023-09-30 08:43 | OP_ITS ---
DATE OF SERVICE: 09/30/2023 SURGEON: Andrzej Malik MD INDICATIONS: Colon cancer screening and prior history of colon polyps. PREOPERATIVE DIAGNOSIS: POSTOPERATIVE DIAGNOSIS: PROCEDURE PERFORMED: Colonoscopy to the terminal ileum with snare polypectomy. ESTIMATED BLOOD LOSS: COMPLICATIONS: ANESTHESIA: Monitored anesthesia care. ASSISTANTS: SPECIMENS: DESCRIPTION OF PROCEDURE: A history and physical was performed. The risks and benefits of the procedure were explained to the patient. Informed consent was obtained. The patient was placed in the left lateral decubitus position. A digital rectal exam was performed and was found to be normal. The Olympus pediatric video colonoscope was introduced into the rectum and advanced to the cecum. The cecum was identified by transillumination, palpation, and identification of ileocecal valve examination was performed. The scope was removed. He tolerated the procedure well and was returned to the recovery area in stable condition. FINDINGS: The terminal ileum was briefly examined and appeared normal. The visualized colonic mucosa was normal. At 65 cm from the anal verge was a flat 8 to 10 mm polyp, which was removed in piecemeal manner with a snare. No other polyps were identified. There was moderate sigmoid diverticulosis. Retroflexed examination showed moderate-sized internal hemorrhoids. IMPRESSION: Colon polyp. RECOMMENDATION: Follow up the biopsy results. MD TESSA Anderson/KALA / [id number]
== END 2023-09-30 08:49 | disposition home or self-care (01) ==
PROVIDERS: PCP Internal Medicine; Visit Provider Internal Medicine Gastroenterology
PROC: 0DJD8ZZ Inspection of Lower Intestinal Tract, Via Natural or Artificial Opening Endoscopic (ICD-10-PCS; CPT 45378; principal; 2023-09-30 07:30)
DX: Z12.11 Encounter for screening for malignant neoplasm of colon (principal); D12.6 Benign neoplasm of colon, unspecified; K57.30 Diverticulosis of large intestine without perforation or abscess without bleeding; K64.8 Other hemorrhoids; Z86.010 Personal history of colon polyps; I10 Essential (primary) hypertension; Z79.899 Other long term (current) drug therapy; Z88.0 Allergy status to penicillin; Z88.8 Allergy status to other drugs, medicaments and biological substances
CPT/HCPCS: 45385; 88305; J2704

== ENCOUNTER 2024-02-16 06:06 | Outpatient (REF) | payer OTHER, SELFPAY ==
[2024-02-16 09:59] LABS: MANUAL DIFF FLAG NO
[2024-02-16 10:10] LABS: Basophils Percent Auto 0.8 % (0-2); Eosinophils Absolute Auto 0.4 X10*3/uL (0.0-0.4); Eosinophils Percent Auto 7.2 % (0-4); Hematocrit 42.4 % (42.0-52.0); Imm Gran Abs Auto 0.02 X10*3/uL (0.00-0.03); Imm Gran Pct Auto 0.4 % (0.0-0.4); Lymphocytes Absolute Auto 1.1 X10*3/uL (1.2-4.9); Lymphocytes Percent Auto 20.9 % (20-40); Mean Corpuscular Hemoglobin 29.5 pg (27.0-33.0); Mean Corpuscular Volume 89.3 fL (80.0-98.0); Mean Platelet Volume 10.5 fL (9.4-12.4); Monocytes Absolute Auto 0.4 X10*3/uL (0.1-1.2); Neutrophils Absolute Auto 3.2 x10*3/uL (2.0-8.3); Neutrophils Percent Auto 63.7 % (45-73); Platelet Count 141 X10*3/uL (160-400); Red Blood Count 4.75 X10*6/uL (4.60-5.80); Red Cell Distribution Width 12.7 % (11.0-16.0)
[2024-02-16 10:26] LABS: Appearance Urine Clear; Color Urine Yellow; Glucose Urine UA Negative (Negative); Leukocyte Esterase Urine Negative (Negative); Nitrite Urine Negative (Negative); Specific Gravity - Urine 1.025 (1.005-1.025); Urine Blood Negative (Negative); Urine Ketones Negative (Negative); Urine Protein Negative (Neg-Trace)
[2024-02-16 10:33] LABS: Bacteria Urine None Seen (None Seen); Hyaline Casts Urine 0-2 /LPF (0-2); RBC Urine 0-2 /HPF (0-2); Squamous Epithelial Cell Urine 0-2 /HPF (0-2); WBC Urine 0-5 /HPF (0-5)
[2024-02-16 10:40] LABS: Alanine Aminotransferase 28 U/L (0-40); Albumin Level 4.1 g/dL (3.5-5.0); Alkaline Phosphatase 45 U/L (39-117); Anion Gap 9 (12-20); Aspartate Amino Transferase 20 U/L (5-37); Bilirubin Total 0.4 mg/dL (0.0-1.0); Blood Urea Nitrogen 19 mg/dL (9-16); Calcium 9.4 mg/dL (8.4-10.2); Carbon Dioxide 26 mmol/L (22-29); Chloride 108 mmol/L (96-108); Cholesterol 124 mg/dL (<200); Estimated Average Glucose 108 mg/dL; Estimated Glomerular Filt Rate > 60; Glucose Fasting 109 mg/dL (60-99); HDL Cholesterol 39 mg/dL (>40); Hemoglobin A1C 129.9125 umol/L; Hemoglobin A1c % 5.4 % (<6.0); LDL Cholesterol Calculated 54 mg/dL (<100); Potassium 4.5 mmol/L (3.3-5.1); Sodium 138 mmol/L (135-145); Total Hemoglobin (HGBA1C) 3616.1594 umol/L; Total Protein 7.1 g/dL (6.5-8.0); Triglycerides 157 mg/dL (<150)
[2024-02-16 10:49] LABS: Creatinine Urine 173.45 mg/dL; Microalbum/Creatinine Ratio Ur 17.8 ug/mg cr (<30); PSA,Total (Free>4and<10) 2.83 ng/mL (0.00-4.00)
[2024-02-16 10:59] LABS: Thyroid Stimulating Hormone 0.82 uIU/mL (0.32-4.0); Vitamin D 25-OH Total 57.3 ng/mL (>30)
== END 2024-02-16 06:07 | disposition home or self-care (01) ==
LOC: HO.HMGCLDS 06:06
PROVIDERS: PCP Internal Medicine; Visit Provider Internal Medicine
DX: I10 Essential (primary) hypertension (principal); E78.00 Pure hypercholesterolemia, unspecified; E66.09 Other obesity due to excess calories; N40.1 Benign prostatic hyperplasia with lower urinary tract symptoms; E55.9 Vitamin D deficiency, unspecified; Z12.5 Encounter for screening for malignant neoplasm of prostate; Z13.1 Encounter for screening for diabetes mellitus
CPT/HCPCS: 36415; 80053; 80061; 81001; 82043; 82306; 82570; 83036; 84153; 84443; 85025

== ENCOUNTER 2025-02-23 12:55 | Outpatient (AMB) | payer OTHER, SELFPAY ==
--- NOTE | 2025-02-23 13:08 | A.OFFPC_ITS ---
Vital Signs 02/23/25 13:16 Height 5 ft 7 in Weight 214 lb 0.6 oz BMI 33.5 BP 128/76 Blood Pressure Location Lt brachial Pulse 96 Pulse Source Pulse Oximeter Temp 97.5 F Pulse Oximetry (%) 94 Intake Visit Reasons: physical Intake Note: No issues Allergies Penicillins (PENICILLINS) Allergy (Severe, Verified 02/23/25 14:28) DIFFICULTY BREATHING Tetracyclines (TETRACYCLINES) Allergy (Intermediate, Verified 02/23/25 14:28) RASH, HIVES, DIFFICULTY BREATHING penicillin V Allergy (Unknown, Verified 02/23/25 14:28) Unknown tetracycline Allergy (Unknown, Verified 02/23/25 14:28) Unknown Sulfa (Sulfonamide Antibiotics) Allergy (Verified 02/23/25 14:28) Unknown Medication List - Last Reconciled 02/23/25 by Ember Erwin PA-C cholecalciferol (vitamin D3) 25 mcg PO DAILY ibuprofen-diphenhydramine cit 200-38 mg (Advil PM) 1 cap PO BEDTIME lisinopril 40 mg PO DAILY simvastatin 20 mg PO BEDTIME tamsulosin 0.4 mg PO DAILY Dental Screening Dental Screen Date: 02/23/25 Did you have a dental visit in the last 12 months?: Yes Did you have a dental problem in the last 6 months where you did not have access to dental care?: Yes Was dental information given to patient?: No HPI physical HPI Details The patient is a 74-year-old male presenting for an annual wellness examination. The patient reports worsening osteoarthritis, particularly in the hands and elbows, with increased pain during cold weather. He manages the pain with Advil and Tylenol, and occasionally uses cannabis for relief. Topical treatments such as Voltaren have been ineffective. The patient has a history of hypertension, managed with lisinopril 40 mg daily. He also takes simvastatin 20 mg for hyperlipidemia, which has resulted in favorable cholesterol levels. His last blood work in February 2024 showed a low platelet count, which has been a consistent finding without a known cause. The patient has benign prostatic hyperplasia, for which he takes tamsulosin. He has a history of smoking, having quit in 2010 after smoking for approximately 35 years. He is the oldest living male in his family, with a family history of diverticulitis and osteoarthritis. Preventative care measures include a recent colonoscopy in September 2023 and a planned lung cancer screening due to his smoking history. He engages in regular physical activity, golfing four to five days a week, and maintains a generally healthy lifestyle. Social History - Exercise: Regularly golfs four to five days a week. - Substance Use: Former smoker, quit in 2010 after 35 years of smoking. - Living Situation: Lives alone, indepen dent in activities of daily living. [facility] Medical History (Updated 02/23/25 @ 15:42 by Ember Erwin PA-C) Low platelet count Ex-cigarette smoker Hypertriglyceridemia Annual physical exam BPH (benign prostatic hyperplasia) Depression Osteoarthritis Hyperlipidemia HTN (hypertension) Tubular adenoma Colon polyps Surgical History Hx of arthroscopy History of bilateral knee replacement H/O colonoscopy (~09/30/23) Social History Patient Tobacco Use Status: Former Tobacco user Questionnaire PHQ-9 Over the last 2 weeks, how often have you been bothered by any of the following problems? 1. Little interest or pleasure in doing things: not at all 2. Feeling down, depressed, or hopeless: not at all 3. Trouble falling or staying asleep, or sleeping too much: not at all 4. Feeling tired or having little energy: not at all 5. Poor appetite or overeating: not at all 6. Feeling bad about yourself - or that you are a failure or have let yourself or your family down: not at all 7. Trouble concentrating on things, such as reading the newspaper or watching television: not at all 8. Moving or speaking so slowly that other people could have noticed. Or the opposite - being so fidgety or restless that you have been moving around a lot more than usual: not at all 9. Thoughts that you would be better off or of hurting yourself in some way: not at all Total score: 0 Depression Screening Interpretation: Negative Depression Screening Done: Yes 45063 - PHQ-9 Billing: Yes Source: Developed by Drs. José Luis Matta, Rosa Anaya, Erik Fletcher and colleagues, with an educational tiago from [employer]. Thrive Questionnaire Date Thrive assessed: 02/23/25 I am a: Patient What is your living situation today?: I have a steady place to live Within the past 12 months, did the food you bought not last and you didn't have the money to get more?: Never true Within the past 12 months, did you worry whether your food would run out before you got money to buy more?: Never true Do you have trouble paying for medicines?: No Do you have trouble getting transportation to medical appointments?: No Do you have trouble paying your heating and electricity bill?: No Do you have trouble taking care of your child, family member or friend?: No Do you have trouble with day-to-day activities such as bathing, preparing meals, shopping, managing finances, etc.?: No Are you currently unemployed and looking for a job?: No Are you interested in more education?: No THRIVE Score: 0 AUDIT C Alcohol Use Questionnaire (AUDIT-C) 1. How often do you have a drink containing alcohol?: Never 3. How often do you have six or more drinks on one occasion?: Never Total Score: 0 Score Reviewed/Action Taken: No GIFTY-7 AMB Questionnaire GIFTY-7 Date GIFTY - 7 assessed: 02/23/25 Feeling nervous, anxious, or on edge: 0 = Not at all Not being able to stop or control worryin = Not at all Worrying too much about different things: 0 = Not at all Trouble relaxin = Not at all Being so restless that it is hard to sit still: 0 = Not at all Becoming easily annoyed or irritable: 0 = Not at all Feeling afraid as if something awful might happen: 0 = Not at all Total GIFTY-7 score (0-4 normal; 5-9 mild; 10-14 moderate; 15-21 severe): 0 Source: Developed by Drs. José Luis Matta, Rosa Anaya, Erik Fletcher and colleagues, with an educational tiago from [employer]. GIFTY-7 Assessment Billing GIFTY-7 Assessment Tool: GIFTY-7 Assessment 26803 Review of Systems Const Details: - Musculoskeletal: Reports worsening joint pain in hands and elbows, exacerbated by cold weather. - Cardiovascular: Denies chest pain, dyspnea, or palpitations. - Respiratory: Denies dyspnea or cough. - Gastrointestinal: Denies abdominal pain, changes in bowel habits, or blood in stool. - Genitourinary: Denies dysuria or hematuria. - Neurological: Denies headaches, dizziness, or balance issues. All systems reviewed & are unremarkable except as noted in HPI and below Physical exam (Primary Care) Vital Signs: Last Vital Signs Temp 97.5 F 02/23/25 13:16 Pulse 96 02/23/25 13:16 BP 128/76 02/23/25 13:16 Pulse Ox 94 02/23/25 13:16 Care Plan Goal for BP management: <140/90 at Goal BMI result Body Mass Index 33.5 BMI Assessment/Plan discussion: High BMI High, discussed plan: lifestyle, weight reduction, dietary, physical activity, alcohol moderation and other Tobacco/Smoking Status: Tobacco use Status Patient Tobacco Use Status Former Tobacco user 02/23/25 13:20 PHQ-9: PHQ-9 Score PHQ-9: Total score 0 02/23/25 13:20 Depression Screening Interpretation: Negative Thrive Assessment: Date of Thrive Assessment Date Thrive assessed 02/23/25 02/23/25 13:20 Const Other: Appearance: Alert. Oriented X3. No acute distress. Head: Normal external exam. Normocephalic. Atraumatic. Eyes: Pupils are equal, round, and reactive to light. Extraocular movements intact. Conjunctiva and sclera normal. Eyelids normal. Ears: External auditory canal normal. Tympanic membranes normal. No wax, barely. Throat: Pharynx normal. Uvula midline. Moist mucous membranes. Neck: Normal inspection. Neck supple. Full range of motion. No adenopathy. Thyroid Normal. No meningeal signs. No neck mass noted. Cardiovascular: Normal heart rate and rhythm. Heart sound normal. No murmurs noted. Pulses normal throughout. Respiratory: No respiratory distress. Painless inspiration. Breath sounds normal. No wheezes/rales/rhonchi noted. Chest nontender. No accessory muscle usage noted or decreased air movement noted. Abdomen: Soft and nontender. Bowel sounds normal in all 4 quadrants. No distention noted. No organomegaly noted. No visible injury noted. No pain over the liver, pancreas, or GI area. Back: No costovertebral angle tenderness. Full range of motion noted. Skin: Skin warm and dry. Normal skin color. Normal skin turgor. No rashes/lesions/lacerations noted. Extremities: No lower extremity edema. Extremities exhibit normal range of motion. Extremities nontender. No swelling over the legs. Neuro: Oriented X 3. No motor deficit. No sensory deficit. Reflexes normal. Results Reviewed Results Reviewed: - Labs: Previous blood work showed low platelet count, A1c at 5.4%. - Imaging: Colonoscopy performed in September 2023, lung cancer screening planned. Coding Level of Care Code New Pt Level 4 (87806) New Pt Prev Care >65yr (02532) Diagnoses Annual physical exam Z00.00 Osteoarthritis M19.90 HTN (hypertension) I10 Hypertriglyceridemia E78.1 BPH (benign prostatic hyperplasia) N40.0 Ex-cigarette smoker Z87.891 Low platelet count D69.6 Additional Codes PHQ-9 - 79129 - PHQ-9 Billing: Yes ([id number]) GIFTY-7 Assessment Billing - GIFTY-7 Assessment Tool: GIFTY-7 Assessment 08204 ([id number]) Time Spent (min) 50 Assessment & Plan Assessment & Plan (1) Annual physical exam: Code(s): Z00.00 - Encounter for general adult medical examination without abnormal findings Category: Medical (2) Osteoarthritis: Code(s): M19.90 - Unspecified osteoarthritis, unspecified site Category: Medical Plan: The patient reports worsening osteoarthritis, particularly in the hands and elbows, with increased pain during cold weather. Current management includes Advil and Tylenol, with occasional use of cannabis for pain relief. Topical treatments such as Voltaren have been ineffective. The patient is advised to try CBD creams as an alternative topical treatment. (3) HTN (hypertension): Code(s): I10 - Essential (primary) hypertension Category: Medical Plan: Hypertension is managed with lisinopril 40 mg daily. The patient is advised to continue current medication and monitor blood pressure regularly. No changes in management are necessary at this time. (4) Hypertriglyceridemia: Code(s): E78.1 - Pure hyperglyceridemia Category: Medical Plan: Hyperlipidemia is managed with simvastatin 20 mg daily, resulting in favorable cholesterol levels. The patient is advised to continue current medication regimen. (5) BPH (benign prostatic hyperplasia): Code(s): N40.0 - Benign prostatic hyperplasia without lower urinary tract symptoms Category: Medical Plan: Benign prostatic hyperplasia is managed with tamsulosin. The patient reports no urinary symptoms, and current management is deemed appropriate. (6) Ex-cigarette smoker: Comment: Quit 14 years ago in 2010; Smoked on/off for 25 years Code(s): Z87.891 - Personal history of nicotine dependence Category: Social Hx Plan: The patient has a history of smoking, having quit in 2010 after smoking for approximately 25 years. A lung cancer screening is planned due to this history, with a referral for a low-dose CT scan to be arranged. (7) Low platelet count: Code(s): D69.6 - Thrombocytopenia, unspecified Category: Medical Plan: The patient has a history of low platelet count, which has been a consistent finding. Further evaluation will depend on upcoming blood work results. If platelet levels are significantly low, a referral to hematology may be considered. Plan Plan Patient was informed and verbally consented to the use of an ambient scribe for clinic note documentation during this visit. 1. Osteoarthritis The patient reports worsening osteoarthritis, particularly in the hands and elbows, with increased pain during cold weather. Current management includes Advil and Tylenol, with occasional use of cannabis for pain relief. Topical treatments such as Voltaren have been ineffective. The patient is advised to try CBD creams as an alternative topical treatment. 2. Hypertension Hypertension is managed with lisinopril 40 mg daily. The patient is advised to continue current medication and monitor blood pressure regularly. No changes in management are necessary at this time. 3. Hyperlipidemia Hyperlipidemia is managed with simvastatin 20 mg daily, resulting in favorable cholesterol levels. The patient is advised to continue current medication regimen. 4. Benign Prostatic Hyperplasia Benign prostatic hyperplasia is managed with tamsulosin. The patient reports no urinary symptoms, and current management is deemed appropriate. 5. History Of Smoking The patient has a history of smoking, having quit in 2010 after smoking for approximately 35 years. A lung cancer screening is planned due to this history, with a referral for a low-dose CT scan to be arranged. 6. Low Platelet Count The patient has a history of low platelet count, which has been a consistent finding. Further evaluation will depend on upcoming blood work results. If platelet levels are significantly low, a referral to hematology may be considered. During the visit, we discussed the management of osteoarthritis, including the use of CBD creams as an alternative to ineffective topical treatments. We reviewed the patient's hypertension and hyperlipidemia management, confirming t hat current medications are effective. The importance of regular monitoring of blood pressure and cholesterol levels was emphasized. We also discussed the patient's history of smoking and the plan for lung cancer screening with a low- dose CT scan. The patient's low platelet count was noted, and further evaluation will be based on upcoming blood work results. The patient was advised to maintain regular follow-ups and to contact us if any new symptoms arise. Orders: Orders C Reactive Protein Today Z00.00 - Encounter for general adult medical examination without abnormal findings Complete Blood Count Auto Diff Today Z00.00 - Encounter for general adult medical examination without abnormal findings Comprehensive [place]. Panel Fast Today Z00.00 - Encounter for general adult medical examination without abnormal findings Hemoglobin A1c Today Z00.00 - Encounter for general adult medical examination without abnormal findings Lipid Panel Today Z00.00 - Encounter for general adult medical examination without abnormal findings Magnesium Today Z00.00 - Encounter for general adult medical examination without abnormal findings Vitamin B12 and Folate Today Z00.00 - Encounter for general adult medical examination without abnormal findings UA CC w/rflx Micro + Cult Today Z00.00 - Encounter for general adult medical examination without abnormal findings PSA,Total (Free>4and<10) Today Z00.00 - Encounter for general adult medical examination without abnormal findings Liver Panel Today Z00.00 - Encounter for general adult medical examination without abnormal findings Vitamin D 25-OH Total Today Z00.00 - Encounter for general adult medical examination without abnormal findings TSH reflex Free T4 Today Z00.00 - Encounter for general adult medical examination without abnormal findings Referrals Lung Cancer Screening Referral Z87.891 - Personal history of nicotine dependence Patient Instructions: - Continue taking lisinopril, simvastatin, and tamsulosin as prescribed. - Use Advil and Tylenol for osteoarthritis pain as needed. - Try CBD creams for joint pain relief. - Schedule and attend the lung cancer screening as planned. - Maintain regular physical activity and a healthy lifestyle. - Monitor blood pressure and cholesterol levels regularly. - Follow up with blood work and contact the office if any new symptoms develop.
[2025-02-23 13:16] VITALS: BP 128/76; PULSE 96; TEMP 36.4; O2SAT 94; BMI 33.5
== END 2025-02-23 13:45 | disposition home or self-care (01) ==
LOC: HO.HMCSH 12:56
PROVIDERS: PCP Internal Medicine; Visit Provider Physician Assistant Medical
DX: Z00.00 Encounter for general adult medical examination without abnormal findings (principal); I10 Essential (primary) hypertension; E78.1 Pure hyperglyceridemia; N40.0 Benign prostatic hyperplasia without lower urinary tract symptoms; M19.90 Unspecified osteoarthritis, unspecified site; Z87.891 Personal history of nicotine dependence; D69.6 Thrombocytopenia, unspecified

== ENCOUNTER → 2025-02-23 12:55 | Outpatient (BNVA) | payer OTHER, SELFPAY | PROVIDERS: PCP Internal Medicine; Visit Provider Physician Assistant Medical | DX: Z00.00 Encounter for general adult medical examination without abnormal findings (principal); M19.022 Primary osteoarthritis, left elbow; M19.021 Primary osteoarthritis, right elbow; M19.042 Primary osteoarthritis, left hand; M19.041 Primary osteoarthritis, right hand; I10 Essential (primary) hypertension; N40.0 Benign prostatic hyperplasia without lower urinary tract symptoms; E78.1 Pure hyperglyceridemia; D69.6 Thrombocytopenia, unspecified; Z87.891 Personal history of nicotine dependence; Z79.899 Other long term (current) drug therapy | CPT/HCPCS: 96127 ==

== ENCOUNTER 2025-03-08 06:00 | Outpatient (REF) | payer OTHER, SELFPAY ==
[2025-03-08 10:01] LABS: Appearance Urine Clear; Glucose Urine UA Negative (Negative); PH 6.5 (5.0-9.0); Specific Gravity - Urine 1.020 (1.005-1.025)
[2025-03-08 10:03] LABS: MANUAL DIFF FLAG NO
[2025-03-08 10:05] LABS: Hematocrit 44.6 % (42.0-52.0); Hemoglobin 14.7 g/dl (14.0-18.0); Imm Gran Abs Auto 0.01 X10*3/uL (0.00-0.03); Imm Gran Pct Auto 0.2 % (0.0-0.4); Lymphocytes Absolute Auto 1.3 X10*3/uL (1.2-4.9); Mean Corpuscular HGB Conc 33.0 g/dl (31.0-36.0); Mean Corpuscular Hemoglobin 29.3 pg (27.0-33.0); Mean Corpuscular Volume 88.8 fL (80.0-98.0); NRBC Abs Auto 0.000 X10*3/uL (0.0-0.012); NRBC Pct Auto 0.0 /100WBC (0.0-0.2); Platelet Count 172 X10*3/uL (160-400); Red Blood Count 5.02 X10*6/uL (4.60-5.80); White Blood Count 5.5 X10*3/uL (4.8-10.8)
[2025-03-08 10:27] LABS: Alanine Aminotransferase 24 U/L (0-40); Albumin Level 4.4 g/dL (3.5-5.0); Alkaline Phosphatase 46 U/L (39-117); Anion Gap 9 (12-20); Aspartate Amino Transferase 26 U/L (5-37); Blood Urea Nitrogen 23 mg/dL (9-16); Calcium 9.2 mg/dL (8.4-10.2); Carbon Dioxide 27 mmol/L (22-29); Chloride 106 mmol/L (96-108); Cholesterol 138 mg/dL (<200); Estimated Glomerular Filt Rate > 60; HDL Cholesterol 38 mg/dL (>40); Magnesium 2.1 mg/dL (1.6-2.6); Potassium 4.9 mmol/L (3.3-5.1); Sodium 137 mmol/L (135-145); Total Protein 7.4 g/dL (6.5-8.0); Triglycerides 132 mg/dL (<150)
[2025-03-08 10:40] LABS: PSA,Total (Free>4and<10) 3.07 ng/mL (0.00-4.00)
[2025-03-08 10:52] LABS: Folate 6.6 ng/mL (> or = 4.0); Vitamin B12 205 pg/mL (200-900)
== END 2025-03-08 06:01 | disposition home or self-care (01) ==
LOC: HO.HMGCLDS 06:00
PROVIDERS: PCP Internal Medicine; Visit Provider Physician Assistant Medical
DX: Z00.00 Encounter for general adult medical examination without abnormal findings (principal); Z12.5 Encounter for screening for malignant neoplasm of prostate; Z13.29 Encounter for screening for other suspected endocrine disorder; Z13.6 Encounter for screening for cardiovascular disorders; Z13.1 Encounter for screening for diabetes mellitus
CPT/HCPCS: 36415; 80053; 80061; 80076; 81003; 82248; 82306; 82607; 82746; 83036; 83735; 84153; 84443; 85025; 86140